=== PATIENT | male | born 1960 | race Caucasian/White ===

== ENCOUNTER 2023-04-12 09:44 | Emergency (ER) | payer OTHER ==
[2023-04-12] MEDS ORDERED: Clindamycin Phosphate in D5W 900 MG in Premix Bag 1 BAG IV ONE ×2 (10:14)
[2023-04-12] MEDS ORDERED: Piperacillin/Tazobactam 4.5 GM in Sodium Chloride 0.9% 100 ML IV ONE (10:14)
[2023-04-12] MEDS ORDERED: Morphine 4 MG/ML Syringe IVPUSH ONE (10:16)
[2023-04-12] MEDS ORDERED: Ondansetron 4 MG/2 ML SDV IVPUSH ONE (10:16)
[2023-04-12] MEDS ORDERED: VANCOmycin 1.5 GM/300 ML 1.5 GM in Premix Bag 1 BAG IV ONE (10:30)
[2023-04-12 10:59] LABS: HEMATOCRIT 42.7 % (38.0-50.0); HEMOGLOBIN 15.1 g/dL (13.0-17.0); MEAN CORPUSCULAR HEMOGLOBIN 33.6 pg (27.0-32.0); MEAN CORPUSCULAR HGB CONC 35.4 g/dL (31.0-37.0); MEAN CORPUSCULAR VOLUME 94.9 fL (80.0-98.0); NRBC ABSOLUTE 0 K/uL; NRBC PERCENT 0.2 /100WBC; WHITE BLOOD CELL COUNT,WBC 34.78 K/uL (4.0-11.0)
[2023-04-12 11:15] LABS: PLATELET COUNT,PLT 89 K/uL (150-400)
[2023-04-12 11:25] LABS: LACTIC ACID 2.9 mmol/L (0.4-2.0)
[2023-04-12 11:28] LABS: A/G RATIO 0.4 (0.9-1.6); ALBUMIN 1.9 g/dL (3.4-5.0); BILIRUBIN TOTAL 3.3 mg/dL (0.2-1.0); CALCIUM 8.4 mg/dL (8.5-10.1); CARBON DIOXIDE,CO2 26.3 mmol/L (21.0-32.0); CREATININE 1.7 mg/dL (0.8-1.3); EST CRCL DRUG DOSING (CG) 45.73 mL/min; POTASSIUM,K 4.5 mmol/L (3.5-5.1); PROTEIN TOTAL,TP 6.2 g/dL (6.4-8.2)
[2023-04-12 11:29] LABS: C-REACTIVE PROTEIN 17.2 mg/dL (0.00-0.90)
[2023-04-12 11:34] LABS: BAND ABSOLUTE MAN 1.4; BAND PERCENT MAN 4 %; LYMPHOCYTES ABSOLUTE MAN 2.1 (0.6-2.4); LYMPHOCYTES PERCENT MAN 6 % (16.0-40.0); METAMYELOCYTE PERCENT MAN 3 %; MONOCYTES PERCENT MAN 3 % (0.0-15.0); MYELOCYTE ABSOLUTE MAN 0.3; MYELOCYTE PERCENT MAN 1 %; SEG NEUTROPHILS ABSOLUTE MAN 28.9 (1.4-5.7); SEG NEUTROPHILS PERCENT MAN 83 % (48.0-80.0)
[2023-04-12 11:37] LABS: PLATELET COUNT ESTIMATE DECREASED; TOXIC GRANULATION 1+ SLIGHT
[2023-04-12] MEDS ORDERED: Lactated Ringers 1,000 ML IV SCH ×2 (12:00)
[2023-04-12] MEDS ORDERED: Iopamidol 755 MG/ML 500 ML Multipack Bottle IVPUSH STA (12:16)
== END 2023-04-12 13:56 ==
LOC: MW.ED 09:44
DX: L08.89 Other specified local infections of the skin and subcutaneous tissue (principal)
CPT/HCPCS: 36415; 73702; 80053; 83605; 85025; 85652; 86140; 87040; 93005; 96360; 96361; 96365; 96367; 96375; 99285; J2405; J2543; J3370; J3490; J7120; Q9967; 93010